=== PATIENT | female | born 1975 | race Caucasian/White ===

== ENCOUNTER 2018-09-09 09:02 | Outpatient (CLI) | payer OTHER ==
[~2018-09-09 09:02] MED LIST: Gadobenate Dimeglumine 529 MG/1 ML (20ML VIAL) ONE
--- NOTE | 2018-09-09 15:45 | MRI ---
BRAIN MRI WITH AND WITHOUT CONTRAST: 09/09/18 COMPARISON: None. HISTORY: Multiple recent seizures. TECHNIQUE: Multiplanar and multisequence MR imaging of the brain obtained with and without contrast using seizur e protocol. FINDINGS: The diffusion weighted imaging demonstrates no evidence for acute infarction. The coronal and axial gradient echo imaging demonstrates no evidence for abnormal calcification or in tracranial hemorrhage. There is no midline shift or mass effect. No ventricular enlargement. There is mild bilateral posterior ethmoid air cell, maxillary sinus, and sphenoid sinus mucosal thick ening. Arterial flow voids at the axial level of the skull base appear grossly unremarkable on the T2 weighted imaging. The postcontrast imaging demonstrates no abnormal enhancement within the brain parenchyma. Regional b one marrow signal intensity appears within normal limits. The hippocampi appear grossly unremarkable in structure, size, and signal intensity bilaterally. IMPRESSION: No acute findings. Incidental findings as documented above. POS: [facility]
== END 2018-09-09 09:03 | disposition home or self-care (01) ==
LOC: SCSMRI 09:02
PROVIDERS: ATTEND Family Medicine
DX: R55 Syncope and collapse (principal); J32.0 Chronic maxillary sinusitis; J32.2 Chronic ethmoidal sinusitis; J32.3 Chronic sphenoidal sinusitis
CPT/HCPCS: 70553; A9577

== ENCOUNTER 2022-12-29 08:52 | Outpatient (CLI) | payer BC | END 2022-12-29 08:53 | disposition home or self-care (01) | LOC: BICULT 08:52 | PROVIDERS: ATTEND Obstetrics & Gynecology | DX: N63.11 Unspecified lump in the right breast, upper outer quadrant (principal) ==

== ENCOUNTER 2025-01-13 07:31 | Outpatient (CLI) | payer BC ==
[2025-01-13] MEDS ORDERED: E-Z-HD 98% W/W 340GM BOT (x-ray ONLY) ONE (07:42)
[2025-01-13] MEDS ORDERED: Barium Sulfate 96% 176 GM BOT (xray ONLY) ONE (07:42)
== END 2025-01-13 07:32 | disposition home or self-care (01) ==
LOC: RAD 07:31
PROVIDERS: ATTEND Surgery
DX: K21.9 Gastro-esophageal reflux disease without esophagitis (principal)
CPT/HCPCS: 74220

== ENCOUNTER 2025-01-26 15:27 | Outpatient (CLI) | payer BC ==
[2025-01-26 16:24] LABS: #Basophils 0.05 10x3/uL (0.0-0.2); #Eosinophils 0.43 10x3/uL (0.0-0.7); #Monocytes 0.73 10x3/uL (0.11-0.59); #Neutrophils 6.54 10x3/uL (1.40-6.50); %Basophils 0.5 % (0.0-1.0); %Eosinophils 4.1 % (0.0-10.0); %Lymphocytes 25.7 % (21.0-51.0); %Monocytes 7.0 % (0.0-10.0); %Neutrophils 62.3 % (42.0-75.0); Hematocrit 40.6 % (36.0-47.0); Hemoglobin 12.8 g/dL (12.0-16.0); Mean Corpuscular Hemoglobin 26.6 pg (27.0-31.0); Mean Corpuscular Volume 84.4 fL (78.0-98.0); Platelet Count 363 10x3/uL (130-400); Red Blood Cell (RBC) Count 4.81 mill/uL (4.20-5.40); White Blood Cell (WBC) Count 10.49 10x3/uL (4.8-10.8)
[2025-01-26 16:57] LABS: ALT (SGPT) 26 U/L (Less than 34); AST (SGOT) 20 U/L (11-34); Albumin 4.0 g/dL (3.1-4.5); Alkaline Phosphatase 22 U/L (40-110); Anion Gap 12 mmol/L (10-20); BUN (Urea Nitrogen) 11 mg/dL (7.0-18.7); Bilirubin, Total 0.1 mg/dL (0.3-1.2); Calc. Creatinine Clearance 0 mL/min (70-130); Calcium 9.7 mg/dL (7.8-10.44); Carbon Dioxide 28 mmol/L (22-29); Chloride 101 mmol/L (98-107); Globulin 3.5 g/dL (2.4-3.5); Glucose 96 mg/dL (70-105); Potassium 3.4 mmol/L (3.5-5.1); Sodium 138 mmol/L (136-145)
== END 2025-01-26 15:28 | disposition home or self-care (01) ==
LOC: LABBT 15:27
PROVIDERS: ATTEND Surgery
DX: Z01.818 Encounter for other preprocedural examination (principal); K22.10 Ulcer of esophagus without bleeding
CPT/HCPCS: 80053; 85025; 93005; 93010

== ENCOUNTER 2025-03-16 10:21 | Day surgery (SDC) | payer BC ==
[2025-03-16] MEDS ORDERED: Ondansetron PF 4 MG/2 ML Vial IVP PRN (10:31)
[2025-03-16] MEDS: Multivitamins, Adult 10 ML, Thiamine HCl 100 MG in Sodium Chloride 0.9% 1,000 ML IV SCH (11:22)
[2025-03-16 12:56] VITALS: BP 134/73; TEMP 98.5
== END 2025-03-16 15:02 | disposition home or self-care (01) ==
LOC: ONC/OP 10:21
PROVIDERS: ATTEND Surgery
DX: E86.0 Dehydration (principal)
CPT/HCPCS: 96365; 96366; J3411; J7030

== ENCOUNTER 2025-03-27 12:12 | Day surgery (SDC) | payer BC ==
[~2025-03-27 12:12] MED LIST changes: -Gadobenate Dimeglumine 529 MG/1 ML (20ML VIAL) ONE; +Ondansetron PF 4 MG/2 ML Vial IVP PRN
[2025-03-27] MEDS: Multivitamins, Adult 10 ML, Thiamine HCl 100 MG in Sodium Chloride 0.9% 1,000 ML IV SCH (12:32)
[2025-03-27 12:47] VITALS: BP 133/67; TEMP 98.3
== END 2025-03-27 14:10 | disposition home or self-care (01) ==
LOC: ONC/OP 12:12
PROVIDERS: ATTEND Surgery
DX: E86.0 Dehydration (principal)
CPT/HCPCS: 96365; J3411; J7030